=== PATIENT | female | born 1975 | race Caucasian/White ===

== ENCOUNTER 2017-11-18 15:17 | Emergency (ER) | payer BC, OTHER ==
[~2017-11-18] VITALS: Ht 165.1 cm; Wt 186.0 kg
--- NOTE | ~2017-11-18 | EKG ---
[address] [address] [place] [address] ELECTROCARDIOGRAM REPORT Name: SANJIV MADISON Room #: [facility]#: [id number] Admission: 11/18/17 Attend Phys: Discharge: 11/18/17 Date of : 75 Report #: [id number] THIS REPORT FOR: //name// [facility] ED Test Date: 2017-11-18 Test Time: 15:23:59 Pat Name: SANJIV MADISON Department: Room: Gender: F [employer] Coord[employer]: : 1975 Requested By: Mike Castanon Order Number: [id number] MD: Ethan Grijalva Measurements Intervals [place] Rate: 84 P: 21 [place]: 160 QRS: 41 QRSD: 76 T: QT: 379 QTc: 449 Interpretive Statements Sinus rhythm Low voltage, precordial leads Abnrm T, consider ischemia, anterolateral lds No previous ECG available for comparison Electronically Signed On 11-19-2017 8:25:47 CDT by Ethan Grijalva [email or web address] <ELECTRONICALLY SIGNED> By: Ethan Grijalva MD, [facility] 11/19/17 0825 1523 1523 Ethan Grijalva MD, FACC /EPI
--- NOTE | ~2017-11-18 | EKG ---
[place] [address] [address] [facility] [place] [address] ELECTROCARDIOGRAM REPORT Name: SANJIV MADISON [facility] [id number] Admission: 11/18/17 Attend Phys: Discharge: 11/18/17 Date of : 75 Report #: [id number] THIS REPORT FOR: //name// [facility] ED Test Date: 2017-11-18 Test Time: 18:37:11 Pat Name: SANJIV MADISON Department: Room: Gender: F Scheduling Manager: feli : 1975 Requested By: Soraida Jimenez Order Number: [id number] MD: Ethan Grijalva Measurements Intervals [place] Rate: 80 P: 24 [place]: 171 QRS: 29 QRSD: 80 T: 3 QT: 396 QTc: 457 Interpretive Statements Sinus rhythm Low voltage, precordial leads Abnormal T, consider ischemia, anterior leads No previous ECG available for comparison Electronically Signed On 11-19-2017 8:28:22 CDT by Ethan Grijalva [email or web address] <ELECTRONICALLY SIGNED> By: Ethan Grijalva MD, [facility] 11/19/17 0828 1837 183 Ethan Grijalva MD, FACC /EPI
[2017-11-18 15:52] LABS: ABSOLUTE NEUTROPHILS 8.1 thou/uL (1.4-8.2); EOSINOPHILS 2.4 % (0.0-3.0); HEMOGLOBIN 13.7 gm/dL (12.0-15.0); LYMPHOCYTES 16.6 % (24.0-44.0); MCH 29.6 pg (26.0-34.0); MCHC 33.4 g/dL (28.0-37.0); MCV 88.6 fL (80.0-100.0); MONOCYTES 5.4 % (1.0-8.0); PLATELET COUNT 306 thou/uL (150-400); POLYS 74.6 % (36.0-66.0); RBC 4.62 mil/uL (4.20-5.00); RDW 13.5 % (10.5-14.5); WBC 10.8 thou/uL (4.0-11.0)
[2017-11-18 16:00] LABS: ANION GAP 9 mmol/L (7-16); BUN 12 mg/dL (7-18); CALCIUM 9.2 mg/dL (8.5-10.1); CHLORIDE 100 mmol/L (98-107); CO2 27 mmol/L (21-32); CREATININE 0.9 mg/dL (0.6-1.0); GLUCOSE 211 mg/dL (74-106); SODIUM 136 mmol/L (136-145)
[2017-11-18 16:08] LABS: TROPONIN-I <0.06 ng/mL (<0.06)
[2017-11-18] MEDS ORDERED: SYNTHROID200 MCG PO (17:22)
[2017-11-18] MEDS ORDERED: METFORMIN HCL500 MG PO (17:22)
[2017-11-18] MEDS ORDERED: ASPIR 8181 MG PO (17:22)
[2017-11-18] MEDS ORDERED: COREG6.25 MG PO (17:23)
[2017-11-18] MEDS ORDERED: LANTUS100 UNIT/M SUBQ (17:23)
[2017-11-18] MEDS ORDERED: AMARYL2 M1 PO (17:23)
[2017-11-18] MEDS ORDERED: HUMALOG100 UNIT/1 SUBQ (17:23)
[2017-11-18] MEDS ORDERED: COZAAR 50 MG TA50 M2 PO (17:24)
[2017-11-18] MEDS ORDERED: LIPITOR10 MG PO (17:24)
[2017-11-18] MEDS ORDERED: PLAVIX 75 MG TA75 M1 PO (17:25)
[2017-11-18] MEDS ORDERED: PROTONIX40 M1 PO (17:25)
[2017-11-18] MEDS ORDERED: MOBIC7.5 MG PO (19:34)
[2017-11-18 20:02] VITALS: BP 151/77
== END 2017-11-18 20:04 | disposition home or self-care (01) ==
LOC: ER 15:17
PROVIDERS: Physician Assistant
DX: R07.9 Chest pain, unspecified (principal); E11.9 Type 2 diabetes mellitus without complications; I10 Essential (primary) hypertension; E66.9 Obesity, unspecified; Z68.44 Body mass index [BMI] 60.0-69.9, adult; Z72.0 Tobacco use; Z88.8 Allergy status to other drugs, medicaments and biological substances; Z79.4 Long term (current) use of insulin

== ENCOUNTER 2019-01-11 16:14 | Emergency (ER) | payer OTHER ==
[~2019-01-11] VITALS: Ht 165.1 cm; Wt 186.2 kg
[~2019-01-11 16:14] MED LIST: AMARYL2 M1 PO; ASPIR 8181 MG PO; COREG6.25 MG PO; COZAAR 50 MG TA50 M2 PO; HUMALOG100 UNIT/1 SUBQ; LANTUS100 UNIT/M SUBQ; LIPITOR10 MG PO; METFORMIN HCL500 MG PO; MOBIC7.5 MG PO; PLAVIX 75 MG TA75 M1 PO; PROTONIX40 M1 PO; SYNTHROID200 MCG PO
[2019-01-11] MEDS ORDERED: JARDIANCE10 MG PO (16:33)
[2019-01-11] MEDS ORDERED: ZOLOFT25 MG PO (16:34)
[2019-01-11 16:56] LABS: ABSOLUTE NEUTROPHILS 5.5 thou/uL (1.4-8.2); BASOPHILS 0.8 % (0.0-2.0); EOSINOPHILS 2.5 % (0.0-3.0); HEMATOCRIT 43.2 % (37.0-47.0); HEMOGLOBIN 13.8 gm/dL (12.0-15.0); LYMPHOCYTES 22.2 % (24.0-44.0); MCH 27.4 pg (26.0-34.0); MCHC 31.9 g/dL (28.0-37.0); MONOCYTES 6.1 % (1.0-8.0); PLATELET COUNT 300 thou/uL (150-400); POLYS 68.4 % (36.0-66.0); RBC 5.03 mil/uL (4.20-5.00); RDW 14.9 % (10.5-14.5); WBC 8.1 thou/uL (4.0-11.0)
[2019-01-11 17:02] LABS: ANION GAP 9 mmol/L (7-16); BUN 16 mg/dL (7-18); CALCIUM 9.2 mg/dL (8.5-10.1); CHLORIDE 103 mmol/L (98-107); CO2 27 mmol/L (21-32); CREATININE 0.9 mg/dL (0.6-1.0); GLUCOSE 155 mg/dL (74-106); SODIUM 139 mmol/L (136-145)
[2019-01-11 17:16] LABS: ALBUMIN 3.3 g/dL (3.4-5.0); SGOT 17 U/L (15-37); SGPT 22 U/L (30-65); TOTAL BILIRUBIN 0.3 mg/dL (<0.1-1.0); TOTAL PROTEIN 7.6 g/dL (6.4-8.2); TROPONIN-I <0.06 ng/mL (<0.06)
[2019-01-11] MEDS ORDERED: TRAMADOL 50 MG50 MG PO (17:43)
[2019-01-11] MEDS ORDERED: NORFLEX100 MG PO (17:43)
[2019-01-11] MEDS ORDERED: NAPROXEN375 MG PO (17:43)
[2019-01-11] MEDS ORDERED: NITROGLYCERIN0.4 MG SUBLING (17:46)
[2019-01-11 19:58] VITALS: BP 170/52
--- NOTE | 2019-01-12 12:52 | EKG ---
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[facility] : 1975 Requested By: Kevin Gutierrez Order Number: [id number] MD: Jamie Wallace Measurements Intervals [place] Rate: 69 P: 42 [place]: 180 QRS: 53 QRSD: 76 T: 51 QT: 390 QTc: 418 Interpretive Statements Sinus rhythm Low voltage, precordial leads Compared to ECG 11/18/2017 18:37:11 T-wave abnormality no longer present Possible ischemia no longer present Electronically Signed On 01-12-2019 12:51:52 CDT by Jamie Wallace [email or web address] <ELECTRONICALLY SIGNED> By: Jamie Wallace MD 01/12/19 1251 1624 1624 Jamie Wallace MD /RAMIRO
== END 2019-01-11 19:58 | disposition home or self-care (01) ==
LOC: ER 16:14
PROVIDERS: Emergency Medicine
DX: M43.6 Torticollis (principal); R07.89 Other chest pain; I25.2 Old myocardial infarction; E11.9 Type 2 diabetes mellitus without complications; Z88.8 Allergy status to other drugs, medicaments and biological substances; Z79.4 Long term (current) use of insulin